=== PATIENT | female | born 1960 | race Caucasian/White ===

== ENCOUNTER 2018-01-12 18:22 | Emergency (ER) | payer BC ==
--- NOTE | 2018-01-12 18:54 | RAD ---
CHEST ONE VIEW 01/12/18 HISTORY: Emergency exam. Dizziness. Fall. COMPARISON: Chest one view 06/03/15. FINDINGS: Lungs are slightly hypoinflated. No focal air space consolidation, pneumothorax or effusion. No displ aced rib fracture. IMPRESSION: No acute intrathoracic abnormality. POS: [facility]
[2018-01-12 19:07] LABS: #Basophils 0.1 thou/uL (0.0-0.2); #Eosinphils 0.3 thou/uL (0.0-0.7); #Lymphocytes 5.5 thou/uL (1.20-3.40); #Monocytes 0.6 thou/uL (0.11-0.59); #Neutrophils 4.5 thou/uL (1.40-6.50); %Eosinophils 2.6 % (0.0-10.0); %Lymphocytes 49.7 % (21.0-51.0); %Monocytes 5.7 % (0.0-10.0); Hemoglobin 10.9 g/dL (12.0-16.0); Mean Corpuscular HGB CONC 34.7 g/dL (32.0-36.0); Mean Corpuscular Hemoglobin 29.5 pg (27.0-31.0); Mean Corpuscular Volume 85.1 fl (81.0-99.0); Mean Platelet Volume 6.7 fL (7.4-10.4); Platelet Count 469 thou/uL (130-400); RBC Distribution Width 12.5 % (11.5-14.5)
[2018-01-12 19:14] LABS: PTT 25.9 SEC (22.9-36.1)
[2018-01-12 19:15] LABS: Prothrombin Time 13.1 SEC (12.0-14.7)
[2018-01-12 19:36] LABS: ALT (SGPT) 13 U/L (8-55); AST (SGOT) 16 U/L (5-34); Albumin 3.6 g/dL (3.5-5.0); Alkaline Phosphatase 67 U/L (40-150); Anion Gap 15 mmol/L (10-20); BUN (Urea Nitrogen) 22 mg/dL (9.8-20.1); Bilirubin, Total 0.2 mg/dL (0.2-1.2); CK (CPK) 129 U/L (29-168); CKMB 3.1 ng/mL (0-6.6); Calc. Creatinine Clearance 0 mL/min (70-130); Calcium 8.9 mg/dL (7.8-10.44); Carbon Dioxide 24 mmol/L (22-29); Chloride 99 mmol/L (98-107); Estimated GFR-MDRD 36; Globulin 3.5 g/dL (2.4-3.5); Glucose 351 mg/dL (70-105); Lipase 68 U/L (8-78); Potassium 4.5 mmol/L (3.5-5.1); Protein, Total 7.1 g/dL (6.0-8.3); Sodium 133 mmol/L (136-145); Troponin I Less than 0.010 ng/mL (< 0.028)
--- NOTE | 2018-01-15 18:04 | EKG ---
Test Reason : Blood Pressure : / mmHG Vent. Rate : 113 BPM Atrial Rate : 113 BPM P-R Int : 132 ms QRS Dur : 084 ms QT Int : 354 ms P-R-T Axes : 035 019 030 degrees QTc Int : 485 ms Sinus tachycardia Otherwise normal ECG Confirmed by MERCEDES VELAZQUEZ, EDGARD ([id number]), proposal editor ELSA FARIA ([id number] on 01/15/2018 6:03:38 PM Referred By: Confirmed By:EDGARD LONG MD
== END 2018-01-12 21:18 | disposition home or self-care (01) ==
LOC: ERS 18:22
DX: F43.9 Reaction to severe stress, unspecified (principal); E11.40 Type 2 diabetes mellitus with diabetic neuropathy, unspecified; E11.9 Type 2 diabetes mellitus without complications; I10 Essential (primary) hypertension; F32.9 Major depressive disorder, single episode, unspecified; F41.9 Anxiety disorder, unspecified; Z79.4 Long term (current) use of insulin; Z79.899 Other long term (current) drug therapy
CPT/HCPCS: 36415; 36416; 71045; 80053; 82550; 82553; 83690; 84484; 85025; 85610; 85730; 93005

== ENCOUNTER 2018-01-30 21:49 | Emergency (ER) | payer BC ==
[2018-01-30] MEDS ORDERED: Acetaminophen 500 MG TAB ONE (23:30)
[2018-01-30 23:38] LABS: Bilirubin Negative (Negative); Blood, Urine Negative (Negative); Clarity CLEAR (Clear); Glucose, Urine (Dipstick) >=1000 mg/dL (Negative); Leukocyte Negative (Negative); Nitrite Negative (Negative); Protein, Urine (Dipstick) Negative (Neg-Trace); Specific Gravity, Urine 1.018 (1.002-1.036)
== END 2018-01-31 01:07 | disposition home or self-care (01) ==
LOC: ERS 21:49
DX: B34.9 Viral infection, unspecified (principal); E11.65 Type 2 diabetes mellitus with hyperglycemia; E11.40 Type 2 diabetes mellitus with diabetic neuropathy, unspecified; I10 Essential (primary) hypertension; F32.9 Major depressive disorder, single episode, unspecified; F41.9 Anxiety disorder, unspecified; Z79.899 Other long term (current) drug therapy; Z79.84 Long term (current) use of oral hypoglycemic drugs
CPT/HCPCS: 36416; 81003; 87081; 87430; 99283

== ENCOUNTER 2018-05-29 17:46 | Emergency (ER) | payer BC ==
[2018-05-29 18:35] LABS: #Basophils 0.1 thou/uL (0.0-0.2); #Eosinphils 0.3 thou/uL (0.0-0.7); #Lymphocytes 4.2 thou/uL (1.20-3.40); #Monocytes 0.5 thou/uL (0.11-0.59); #Neutrophils 3.8 thou/uL (1.40-6.50); %Basophils 1.3 % (0.0-1.0); %Eosinophils 3.1 % (0.0-10.0); %Lymphocytes 47.5 % (21.0-51.0); %Monocytes 5.4 % (0.0-10.0); %Neutrophils 42.8 % (42.0-75.0); Hemoglobin 11.3 g/dL (12.0-16.0); Mean Corpuscular HGB CONC 34.2 g/dL (32.0-36.0); Mean Corpuscular Hemoglobin 28.6 pg (27.0-31.0); Mean Corpuscular Volume 83.7 fL (78.0-98.0); Mean Platelet Volume 6.3 fL (7.4-10.4); Platelet Count 425 thou/uL (130-400); RBC Distribution Width 12.9 % (11.5-14.5); Red Blood Cell (RBC) Count 3.94 mill/uL (4.20-5.40); White Blood Cell (WBC) Count 8.9 thou/uL (4.8-10.8)
[2018-05-29 18:52] LABS: ALT (SGPT) 18 U/L (8-55); AST (SGOT) 20 U/L (5-34); Albumin 3.8 g/dL (3.5-5.0); Alkaline Phosphatase 67 U/L (40-150); Anion Gap 14 mmol/L (10-20); BUN (Urea Nitrogen) 16 mg/dL (9.8-20.1); Bilirubin, Total 0.3 mg/dL (0.2-1.2); Calc. Creatinine Clearance 0 mL/min (70-130); Calcium 9.8 mg/dL (7.8-10.44); Carbon Dioxide 21 mmol/L (22-29); Chloride 102 mmol/L (98-107); Estimated GFR-MDRD 40; Globulin 3.5 g/dL (2.4-3.5); Glucose 306 mg/dL (70-105); Lipase 52 U/L (8-78); Magnesium 1.8 mg/dL (1.6-2.6); Potassium 4.4 mmol/L (3.5-5.1); Protein, Total 7.3 g/dL (6.0-8.3); Sodium 133 mmol/L (136-145)
[2018-05-29 18:56] LABS: CKMB 2.4 ng/mL (0-6.6); Troponin I Less than 0.010 ng/mL (< 0.028)
[2018-05-29 19:20] LABS: Bilirubin Negative (Negative); Blood, Urine Negative (Negative); Clarity CLEAR (Clear); Glucose, Urine (Dipstick) 500 mg/dL (Negative); Leukocyte Negative (Negative); Nitrite Negative (Negative); Protein, Urine (Dipstick) 30 mg/dL (Neg-Trace); Specific Gravity, Urine 1.023 (1.002-1.036)
[2018-05-29 19:23] LABS: Bacteria/HPF Rare-Few HPF (None Seen); Hyaline Casts/LPF 0-3 HYALINE CAST LPF (0-3 Hyaline); Pathc Cast-AUWi Flag 0.14 (0-2.49); RBC/HPF 0-3 HPF (0-3); WBC/HPF 0-3 HPF (0-3)
[2018-05-29 19:26] LABS: Renal Epithelial None Seen HPF (0-3); Transitional Epithelial NONE SEEN HPF (0-3)
[2018-05-29 20:35] LABS: Amphetamine Not Detected (NotDetected); Barbiturates Screen Not Detected (NotDetected); Benzodiazepine Screen Detected (NotDetected); Cocaine Metabolite Screen Not Detected (NotDetected); Medtox Control Line Valid? VALID (VALID); Medtox Reader # READER 1; Methadone Not Detected (NotDetected); Methamphetamine Not Detected (NotDetected); Opiate Screen Not Detected (NotDetected); Oxycodone Screen Not Detected (NotDetected); Phencyclidine (PCP) Not Detected (NotDetected); THC/Cannabinoid Screen Not Detected (NotDetected); Tricyclic Screen Not Detected (NotDetected)
[2018-05-29 20:36] LABS: Acetaminophen Less than 6.0 mcg/mL (10.0-30.0); Alcohol Less than 10 mg/dL (Less than 10); Salicylate Less than 8.0 mg/dL (15.0-30.0)
== END 2018-05-29 23:21 | disposition home or self-care (01) ==
LOC: ERS 17:46
DX: F43.20 Adjustment disorder, unspecified (principal); E11.40 Type 2 diabetes mellitus with diabetic neuropathy, unspecified; I10 Essential (primary) hypertension; F41.9 Anxiety disorder, unspecified; F32.9 Major depressive disorder, single episode, unspecified; Z87.891 Personal history of nicotine dependence; Z79.4 Long term (current) use of insulin
CPT/HCPCS: 36415; 36416; 80053; 80306; 80307; 81003; 81015; 82553; 83690; 83735; 84443; 84484; 85025

== ENCOUNTER 2018-08-05 17:27 | Emergency (ER) | payer BC ==
--- NOTE | 2018-08-05 18:10 | RAD ---
RIGHT FOOT THREE VIEW 08/05/18 HISTORY: Wound. COMPARISON: Foot radiograph 2009. FINDINGS: No acute displaced fracture or malalignment. There is a radiopacity projecting over the plantar soft tissues in the third and fourth toes. No erosion or periostitis is appreciated. IMPRESSION: 1. Radiopacity, measuring 2 x 2 mm, within the plantar soft tissues of the third and fourth toes . 2. No definite evidence of osteomyelitis. If there is clinical concern, MRI recommended. POS: [facility]
== END 2018-08-05 18:44 | disposition home or self-care (01) ==
LOC: ERS 17:27
DX: E11.621 Type 2 diabetes mellitus with foot ulcer (principal); L97.519 Non-pressure chronic ulcer of other part of right foot with unspecified severity; L03.116 Cellulitis of left lower limb; E11.40 Type 2 diabetes mellitus with diabetic neuropathy, unspecified; F41.9 Anxiety disorder, unspecified; I10 Essential (primary) hypertension; F03.90 Unspecified dementia, unspecified severity, without behavioral disturbance, psychotic disturbance, mood disturbance, and anxiety; F32.9 Major depressive disorder, single episode, unspecified; Z87.891 Personal history of nicotine dependence; Z79.4 Long term (current) use of insulin; Z79.899 Other long term (current) drug therapy

== ENCOUNTER 2018-12-05 17:21 | Emergency (ER) | payer BC ==
--- NOTE | 2018-12-05 19:08 | RAD ---
RADIOGRAPH LEFT HAND THREE VIEWS: HISTORY: A 58-year-old female with traumatic penetrating injury to the left hand by dog bite. FINDINGS: There is no fracture, dislocation, or radiopaque foreign body. No periosteal elevation. There is so ft tissue edema. No definite subcutaneous emphysema. IMPRESSION: 1. Soft tissue edema. 2. No fracture. POS: [facility]
== END 2018-12-05 19:30 | disposition home or self-care (01) ==
LOC: ERS 17:21
DX: S61.452A Open bite of left hand, initial encounter (principal); L03.114 Cellulitis of left upper limb; E11.40 Type 2 diabetes mellitus with diabetic neuropathy, unspecified; I10 Essential (primary) hypertension; Z87.891 Personal history of nicotine dependence; Z79.4 Long term (current) use of insulin; Z79.899 Other long term (current) drug therapy; W54.0XXA Bitten by dog, initial encounter

== ENCOUNTER 2018-12-28 17:33 | Emergency (ER) | payer BC ==
[2018-12-28 18:01] LABS: #Basophils 0.2 thou/uL (0.0-0.2); #Eosinphils 0.3 thou/uL (0.0-0.7); #Lymphocytes 5.4 thou/uL (1.20-3.40); #Monocytes 0.7 thou/uL (0.11-0.59); #Neutrophils 5.2 thou/uL (1.40-6.50); %Basophils 1.3 % (0.0-1.0); %Eosinophils 2.4 % (0.0-10.0); %Lymphocytes 46.1 % (21.0-51.0); %Neutrophils 44.3 % (42.0-75.0); Hemoglobin 12.3 g/dL (12.0-16.0); Mean Corpuscular HGB CONC 33.9 g/dL (32.0-36.0); Mean Corpuscular Hemoglobin 28.1 pg (27.0-31.0); Mean Corpuscular Volume 82.9 fL (78.0-98.0); Mean Platelet Volume 6.9 fL (7.4-10.4); Platelet Count 449 thou/uL (130-400); RBC Distribution Width 13.3 % (11.5-14.5); Red Blood Cell (RBC) Count 4.36 mill/uL (4.20-5.40); White Blood Cell (WBC) Count 11.7 thou/uL (4.8-10.8)
[2018-12-28 18:30] LABS: ALT (SGPT) 20 U/L (8-55); AST (SGOT) 22 U/L (5-34); Albumin 4.1 g/dL (3.5-5.0); Alkaline Phosphatase 96 U/L (40-150); Anion Gap 16 mmol/L (10-20); BUN (Urea Nitrogen) 21 mg/dL (9.8-20.1); Bilirubin, Total 0.3 mg/dL (0.2-1.2); Calc. Creatinine Clearance 0 mL/min (70-130); Calcium 9.8 mg/dL (7.8-10.44); Carbon Dioxide 23 mmol/L (22-29); Chloride 98 mmol/L (98-107); Estimated GFR-MDRD 39; Globulin 4.2 g/dL (2.4-3.5); Glucose 381 mg/dL (70-105); Potassium 4.2 mmol/L (3.5-5.1); Protein, Total 8.3 g/dL (6.0-8.3); Sodium 133 mmol/L (136-145)
--- NOTE | 2018-12-28 18:45 | RAD ---
AP VIEW CHEST: 12/28/18 HISTORY: Cough. AP view chest is obtained on 12/28/18. Comparison made to previous exam from 01/12/18. AP view chest demonstrates the EKG leads seen over the chest. The lungs are well aerated. No evidence of active intrathoracic disease seen. No evidence of effusions, pneumonia, or pneumothorax seen. IMPRESSION: Unremarkable AP view chest. POS: [facility]
[2018-12-28 20:51] LABS: Bilirubin Negative (Negative); Blood, Urine Negative (Negative); Clarity CLEAR (Clear); Glucose, Urine (Dipstick) >=1000 mg/dL (Negative); Leukocyte Negative (Negative); Nitrite Negative (Negative); Protein, Urine (Dipstick) Negative (Neg-Trace); Specific Gravity, Urine 1.026 (1.002-1.036); Urobilinogen 0.2 mg/dL (0.2-1.0); pH, Urine 5.5 (5.0-9.0)
[2018-12-28 21:24] LABS: Base Excess-Venous -0.3 mmol/L (0 (+/- 2.5)); Bicarbonate (HCO3v) 25.6 mmol/L (22.0-29.0); CO2 Tension (PvCO2) 45.8 mmHg (41.0-51.0); Calcium, Ionized 1.14 mmol/L (1.12-1.32); Hemoglobin - Calc 12.3 g/dL (12.0-18.0); O2 Tension (PvO2) 37.6 mmHg (35.0-45.0); Potassium 3.8 mmol/L (3.4-4.7); pH (Venous) 7.356 (7.35-7.45); vO2 Saturation-calc 68.5 % (94-98)
== END 2018-12-28 21:50 | disposition home or self-care (01) ==
LOC: ERS 17:33
DX: E86.0 Dehydration (principal); E11.65 Type 2 diabetes mellitus with hyperglycemia; I10 Essential (primary) hypertension; F41.9 Anxiety disorder, unspecified; F32.9 Major depressive disorder, single episode, unspecified; E11.40 Type 2 diabetes mellitus with diabetic neuropathy, unspecified; F03.90 Unspecified dementia, unspecified severity, without behavioral disturbance, psychotic disturbance, mood disturbance, and anxiety; Z79.4 Long term (current) use of insulin; Z79.899 Other long term (current) drug therapy; Z79.891 Long term (current) use of opiate analgesic
CPT/HCPCS: 36416; 71045; 80053; 81003; 82010; 82330; 82803; 83880; 84484; 85025; 93005; 96360

== ENCOUNTER 2019-12-03 19:37 | Emergency (ER) | payer BC ==
[2019-12-03 20:57] LABS: Hemoglobin 11.9 g/dL (12.0-16.0); Mean Corpuscular Hemoglobin 27.2 pg (27.0-31.0); Mean Corpuscular Volume 82.6 fL (78.0-98.0); Mean Platelet Volume 6.8 fL (7.4-10.4); Platelet Count 467 thou/uL (130-400); RBC Distribution Width 13.9 % (11.5-14.5); Red Blood Cell (RBC) Count 4.39 mill/uL (4.20-5.40)
[2019-12-03 20:57] LABS: Bilirubin Negative (Negative); Blood, Urine Negative (Negative); Clarity Clear (Clear); Glucose, Urine (Dipstick) 300 mg/dL (Negative); Leukocyte Negative Leu/uL (Negative); Nitrite Negative (Negative); Protein, Urine (Dipstick) 10 mg/dL (Neg-Trace); Urobilinogen Normal mg/dL (Less than 2)
[2019-12-03] MEDS ORDERED: Ondansetron PF 4 MG/2 ML Vial ONE (21:04)
[2019-12-03] MEDS ORDERED: Acetaminophen 500 MG TAB ONE (21:04)
[2019-12-03 21:15] LABS: Eosinophils 2 % (0-10); Lymphocytes 38 % (21-51); MDiff Complete? YES; Monocytes 2 % (0-10); Neutrophil 58 % (42-75); Platelet Morphology Comment Appears Increased; RBC Morphology Normal
[2019-12-03 21:17] LABS: ALT (SGPT) 25 U/L (8-55); AST (SGOT) 20 U/L (5-34); Albumin 3.9 g/dL (3.5-5.0); Alkaline Phosphatase 75 U/L (40-110); Anion Gap 13 mmol/L (10-20); BUN (Urea Nitrogen) 20 mg/dL (9.8-20.1); Bilirubin, Total Less than 0.2 mg/dL (0.2-1.2); Calc. Creatinine Clearance 0 mL/min (70-130); Calcium 9.5 mg/dL (7.8-10.44); Carbon Dioxide 25 mmol/L (22-29); Chloride 103 mmol/L (98-107); Estimated GFR-MDRD 39; Globulin 3.9 g/dL (2.4-3.5); Glucose 165 mg/dL (70-105); Potassium 3.9 mmol/L (3.5-5.1); Protein, Total 7.8 g/dL (6.0-8.3); Sodium 137 mmol/L (136-145)
== END 2019-12-03 23:21 | disposition home or self-care (01) ==
LOC: ERS 19:37
DX: E11.65 Type 2 diabetes mellitus with hyperglycemia (principal); E86.0 Dehydration; E11.40 Type 2 diabetes mellitus with diabetic neuropathy, unspecified; I10 Essential (primary) hypertension; F03.90 Unspecified dementia, unspecified severity, without behavioral disturbance, psychotic disturbance, mood disturbance, and anxiety; F41.9 Anxiety disorder, unspecified; F32.9 Major depressive disorder, single episode, unspecified; Z87.891 Personal history of nicotine dependence; Z79.899 Other long term (current) drug therapy; Z79.4 Long term (current) use of insulin
CPT/HCPCS: 36416; 80053; 81003; 82010; 84484; 85025; 93005; 96361; 96374; J2405

== ENCOUNTER 2020-01-08 15:33 | Emergency (ER) | payer BC ==
[2020-01-08 16:31] LABS: Hemoglobin 12.5 g/dL (12.0-16.0); Mean Corpuscular HGB CONC 32.2 g/dL (32.0-36.0); Mean Corpuscular Hemoglobin 27.2 pg (27.0-31.0); Mean Corpuscular Volume 84.5 fL (78.0-98.0); Mean Platelet Volume 7.1 fL (7.4-10.4); Platelet Count 460 thou/uL (130-400); RBC Distribution Width 14.3 % (11.5-14.5); Red Blood Cell (RBC) Count 4.61 mill/uL (4.20-5.40); White Blood Cell (WBC) Count 11.6 thou/uL (4.8-10.8)
[2020-01-08 16:51] LABS: #Basophils 0.1 thou/uL (0.0-0.2); #Eosinphils 0.4 thou/uL (0.0-0.7); #Lymphocytes 4.9 thou/uL (1.20-3.40); #Monocytes 0.8 thou/uL (0.11-0.59); #Neutrophils 5.5 thou/uL (1.40-6.50); %Basophils 0.5 % (0.0-1.0); %Eosinophils 3.1 % (0.0-10.0); %Lymphocytes 42.3 % (21.0-51.0); %Monocytes 6.5 % (0.0-10.0); %Neutrophils 47.6 % (42.0-75.0); Band 1 % (5-11); Eosinophils 2 % (0-10); Lymphocytes 50 % (21-51); MDiff Complete? YES; Monocytes 4 % (0-10); Neutrophil 42 % (42-75); Platelet Morphology Comment Appears Increased; Polychromasia SLIGHT = 2-3 cells (100X) (0-2/hpf); Reactive Lymphocytes 1 % (0-10)
[2020-01-08 16:57] LABS: ALT (SGPT) 23 U/L (8-55); AST (SGOT) 22 U/L (5-34); Albumin 3.9 g/dL (3.5-5.0); Alkaline Phosphatase 76 U/L (40-110); Anion Gap 15 mmol/L (10-20); BUN (Urea Nitrogen) 19 mg/dL (9.8-20.1); Bilirubin, Total 0.4 mg/dL (0.2-1.2); Calc. Creatinine Clearance 0 mL/min (70-130); Calcium 9.6 mg/dL (7.8-10.44); Carbon Dioxide 24 mmol/L (22-29); Chloride 100 mmol/L (98-107); Estimated GFR-MDRD 45; Glucose 346 mg/dL (70-105); Potassium 4.1 mmol/L (3.5-5.1); Protein, Total 7.9 g/dL (6.0-8.3); Sodium 135 mmol/L (136-145)
== END 2020-01-08 17:18 | disposition left against medical advice (07) ==
LOC: ERS 15:33
DX: Z53.29 Procedure and treatment not carried out because of patient's decision for other reasons (principal)
CPT/HCPCS: 36415; 36416; 80053; 82010; 85025

== ENCOUNTER 2021-09-19 16:01 | Inpatient (IN) | payer BC, OTHER ==
[2021-09-19 16:38] LABS: #Basophils 0.1 thou/uL (0.0-0.2); #Eosinphils 0.2 thou/uL (0.0-0.7); #Lymphocytes 4.2 thou/uL (1.20-3.40); #Monocytes 0.7 thou/uL (0.11-0.59); #Neutrophils 6.8 thou/uL (1.40-6.50); %Basophils 0.6 % (0.0-1.0); %Eosinophils 1.6 % (0.0-10.0); %Lymphocytes 35.1 % (21.0-51.0); %Monocytes 5.5 % (0.0-10.0); %Neutrophils 57.2 % (42.0-75.0); Hemoglobin 14.3 g/dL (12.0-16.0); Mean Corpuscular HGB CONC 33.1 g/dL (32.0-36.0); Mean Corpuscular Hemoglobin 28.2 pg (27.0-31.0); Mean Corpuscular Volume 85.4 fL (78.0-98.0); Mean Platelet Volume 6.9 fL (7.4-10.4); Platelet Count 492 thou/uL (130-400); RBC Distribution Width 13.6 % (11.5-14.5); Red Blood Cell (RBC) Count 5.06 mill/uL (4.20-5.40); White Blood Cell (WBC) Count 11.8 thou/uL (4.8-10.8)
[2021-09-19 16:56] LABS: PTT 27.9 sec (22.9-36.1); Prothrombin Time 12.9 sec (12.0-14.7)
[2021-09-19 17:15] LABS: ALT (SGPT) 17 U/L (8-55); AST (SGOT) 14 U/L (5-34); Albumin 4.3 g/dL (3.5-5.0); Alkaline Phosphatase 107 U/L (40-110); Anion Gap 21 mmol/L (10-20); BUN (Urea Nitrogen) 19 mg/dL (9.8-20.1); Bilirubin, Total 0.5 mg/dL (0.2-1.2); Calc. Creatinine Clearance 0 mL/min (70-130); Calcium 10.6 mg/dL (7.8-10.44); Carbon Dioxide 22 mmol/L (22-29); Chloride 90 mmol/L (98-107); Globulin 4.5 g/dL (2.4-3.5); Potassium 4.7 mmol/L (3.5-5.1); Protein, Total 8.8 g/dL (6.0-8.3); Sodium 128 mmol/L (136-145)
[2021-09-19 17:19] LABS: Glucose 663 mg/dL (70-105)
[2021-09-19 17:43] LABS: Bacteria/HPF None Seen HPF (None Seen); Bilirubin Negative (Negative); Blood, Urine Negative (Negative); Clarity Clear (Clear); Glucose, Urine (Dipstick) Greater than 1000 mg/dL (Negative); Ketone, Urine 20 mg/dL (Negative); Leukocyte 25 Leu/uL (Negative); Nitrite Negative (Negative); Protein, Urine (Dipstick) 10 mg/dL (Neg-Trace); Specific Gravity, Urine 1.031 (1.002-1.036); Squamous Epithelial 0-3 HPF (0-3); Urobilinogen Normal mg/dL (Less than 2)
[2021-09-19 19:50] LABS: Actual Bicarbonate (HCO3v) 28 mEq/L (22-28); Analyzer IN Cardio ER; Base Excess 1.3 mEq/L (-2.0 to +3.0); Calcium, Ionized (venous) 1.15 mmol/L (1.16-1.32); Chloride (VBG) 94 mmol/L (98-106); Potassium (VBG) 4.31 mmol/L (3.70-5.30); Sodium 134.3 mmol/L (133-146); pH (venous) 7.34 (7.32-7.43)
[2021-09-19 20:05] LABS: Lactic Acid 1.7 mmol/L (0.5-2.2)
[2021-09-19] MEDS ORDERED: Insulin Regular 300 UNITS/3 ML VIAL ONE (21:17)
[2021-09-19] MEDS ORDERED: Ondansetron PF 4 MG/2 ML Vial IVP PRN (23:15)
[2021-09-19] MEDS ORDERED: Ondansetron ODT 4 MG TAB SL PRN (23:15)
[2021-09-19] MEDS ORDERED: Acetaminophen 325 MG TAB PO PRN (23:15)
[2021-09-19] MEDS: Sodium Chloride 0.9% 1,000 ML IV SCH (23:43)
[2021-09-19 23:44] VITALS: BMI 30.1
[2021-09-19] MEDS ORDERED: Fluconazole 100 MG TAB PO SCH (23:59)
[2021-09-20] MEDS ORDERED: Dextrose 50% Abboject 50 ML SYRINGE IVP PRN (00:15)
[2021-09-20] MEDS ORDERED: Dextrose 5% in Water 1,000 ML IV PRN (00:15)
[2021-09-20] MEDS: HumaLOG 300 UNITS/3 ML VIAL SC PRN ×2 (00:30→12:13)
[2021-09-20] MEDS: Lidocaine 4% Topical Sol 50 ML BOT TOP PRN ×4 (02:52→22:45)
[2021-09-20] MEDS: Benzonatate 100 MG CAP PO PRN ×3 (02:53→20:28)
[2021-09-20] MEDS ORDERED: Lantus 1000 UNITS/10 ML VIAL SC SCH (03:00)
[2021-09-20] MEDS: Sodium Chloride 0.9% 1,000 ML IV SCH (04:32)
[2021-09-20] MEDS: Lantus 1000 UNITS/10 ML VIAL SC SCH (08:51)
[2021-09-20 13:19] LABS: #Basophils 0.1 thou/uL (0.0-0.2); #Eosinphils 0.7 thou/uL (0.0-0.7); #Lymphocytes 5.9 thou/uL (1.20-3.40); #Monocytes 0.8 thou/uL (0.11-0.59); #Neutrophils 5.7 thou/uL (1.40-6.50); %Basophils 0.5 % (0.0-1.0); %Eosinophils 5.1 % (0.0-10.0); %Lymphocytes 44.9 % (21.0-51.0); %Monocytes 6.1 % (0.0-10.0); %Neutrophils 43.4 % (42.0-75.0); Hemoglobin 12.3 g/dL (12.0-16.0); Mean Corpuscular HGB CONC 33.8 g/dL (32.0-36.0); Mean Corpuscular Hemoglobin 28.6 pg (27.0-31.0); Mean Corpuscular Volume 84.7 fL (78.0-98.0); Mean Platelet Volume 6.6 fL (7.4-10.4); Platelet Count 369 thou/uL (130-400); RBC Distribution Width 13.2 % (11.5-14.5); White Blood Cell (WBC) Count 13.1 thou/uL (4.8-10.8)
[2021-09-20 14:06] LABS: Anion Gap 15 mmol/L (10-20); BUN (Urea Nitrogen) 18 mg/dL (9.8-20.1); Calc. Creatinine Clearance 70 mL/min (70-130); Calcium 9.4 mg/dL (7.8-10.44); Carbon Dioxide 22 mmol/L (22-29); Chloride 99 mmol/L (98-107); Glucose 432 mg/dL (70-105); Potassium 4.1 mmol/L (3.5-5.1); Sodium 132 mmol/L (136-145)
[2021-09-20] MEDS ORDERED: HumaLOG 300 UNITS/3 ML VIAL SC SCH (17:15)
[2021-09-20 18:57] LABS: SARS-CoV-2 PCR by NAA Not Detected (NotDetected)
[2021-09-20] MEDS: Gabapentin 300 MG CAP PO SCH (20:26)
[2021-09-20] MEDS: Atorvastatin Calcium 10 MG TAB PO SCH (20:26)
[2021-09-20] MEDS: HumaLOG 300 UNITS/3 ML VIAL SC SCH (20:50)
[2021-09-21] MEDS: Lidocaine 4% Topical Sol 50 ML BOT TOP PRN ×3 (06:58→21:20)
[2021-09-21 07:07] LABS: #Basophils 0.1 thou/uL (0.0-0.2); #Eosinphils 0.4 thou/uL (0.0-0.7); #Lymphocytes 5.7 thou/uL (1.20-3.40); #Monocytes 0.9 thou/uL (0.11-0.59); #Neutrophils 4.9 thou/uL (1.40-6.50); %Basophils 0.8 % (0.0-1.0); %Eosinophils 3.4 % (0.0-10.0); %Lymphocytes 47.5 % (21.0-51.0); %Monocytes 7.7 % (0.0-10.0); %Neutrophils 40.5 % (42.0-75.0); Hemoglobin 11.6 g/dL (12.0-16.0); Mean Corpuscular HGB CONC 34.1 g/dL (32.0-36.0); Mean Corpuscular Hemoglobin 29.1 pg (27.0-31.0); Mean Corpuscular Volume 85.3 fL (78.0-98.0); Mean Platelet Volume 6.7 fL (7.4-10.4); Platelet Count 356 thou/uL (130-400); RBC Distribution Width 13.2 % (11.5-14.5); Red Blood Cell (RBC) Count 3.99 mill/uL (4.20-5.40)
[2021-09-21 07:33] LABS: Anion Gap 14 mmol/L (10-20); BUN (Urea Nitrogen) 17 mg/dL (9.8-20.1); Calc. Creatinine Clearance 71 mL/min (70-130); Calcium 8.6 mg/dL (7.8-10.44); Carbon Dioxide 22 mmol/L (22-29); Chloride 104 mmol/L (98-107); Glucose 321 mg/dL (70-105); Potassium 4.2 mmol/L (3.5-5.1); Sodium 136 mmol/L (136-145)
[2021-09-21] MEDS: Gabapentin 300 MG CAP PO SCH ×2 (08:06→21:15)
[2021-09-21] MEDS: HumaLOG 300 UNITS/3 ML VIAL SC SCH ×3 (08:06→21:16)
[2021-09-21] MEDS: Benzonatate 100 MG CAP PO PRN ×2 (08:06→21:15)
[2021-09-21] MEDS: Lantus 1000 UNITS/10 ML VIAL SC SCH (08:07)
[2021-09-21] MEDS: HumaLOG 300 UNITS/3 ML VIAL SC PRN (12:35)
[2021-09-21] MEDS ORDERED: Lantus 1000 UNITS/10 ML VIAL SC SCH (15:45)
[2021-09-21] MEDS: Atorvastatin Calcium 10 MG TAB PO SCH (21:15)
[2021-09-22] MEDS: HumaLOG 300 UNITS/3 ML VIAL SC PRN ×2 (06:34→12:14)
[2021-09-22 07:09] LABS: Hemoglobin 12.2 g/dL (12.0-16.0); Mean Corpuscular HGB CONC 34.3 g/dL (32.0-36.0); Mean Corpuscular Hemoglobin 28.8 pg (27.0-31.0); Mean Corpuscular Volume 84.1 fL (78.0-98.0); Mean Platelet Volume 6.5 fL (7.4-10.4); Platelet Count 389 thou/uL (130-400); RBC Distribution Width 13.2 % (11.5-14.5); Red Blood Cell (RBC) Count 4.23 mill/uL (4.20-5.40); White Blood Cell (WBC) Count 11.7 thou/uL (4.8-10.8)
[2021-09-22 07:18] LABS: Anion Gap 12 mmol/L (10-20); BUN (Urea Nitrogen) 17 mg/dL (9.8-20.1); Calc. Creatinine Clearance 74 mL/min (70-130); Calcium 9.7 mg/dL (7.8-10.44); Carbon Dioxide 24 mmol/L (22-29); Chloride 105 mmol/L (98-107); Glucose 301 mg/dL (70-105); Potassium 4.2 mmol/L (3.5-5.1); Sodium 137 mmol/L (136-145)
[2021-09-22 07:45] LABS: Band 2 % (5-11); Eosinophils 5 % (0-10); Lymphocytes 52 % (21-51); MDiff Complete? YES; Monocytes 1 % (0-10); Neutrophil 38 % (42-75); Platelet Morphology Comment Appears Adequate; Polychromasia SLIGHT = 2-3 cells (100X) (0-2/hpf)
[2021-09-22] MEDS: Lidocaine 4% Topical Sol 50 ML BOT TOP PRN (08:03)
[2021-09-22] MEDS: Benzonatate 100 MG CAP PO PRN (08:03)
[2021-09-22] MEDS: Gabapentin 300 MG CAP PO SCH (08:03)
[2021-09-22] MEDS: HumaLOG 300 UNITS/3 ML VIAL SC SCH (08:04)
[2021-09-22 08:20] VITALS: BP 164/74; TEMP 97.6
[2021-09-22] MEDS ORDERED: Lantus 1000 UNITS/10 ML VIAL SC SCH (09:00)
[2021-09-23] MEDS ORDERED: FLU VACC QS2021-22(6MOS UP)/PF 60 MCG/0.5 ML SYRINGE IM ONE (09:00)
== END 2021-09-22 13:41 | disposition home or self-care (01) | DRG 758 ==
LOC: ERS 16:01 → T4-A 21:36
PROVIDERS: ADMIT Student in an Organized Health Care Education/Training Program; ATTEND Internal Medicine
DX: B37.3 Candidiasis of vulva and vagina (principal); N17.9 Acute kidney failure, unspecified; R45.851 Suicidal ideations; E11.65 Type 2 diabetes mellitus with hyperglycemia; N18.30 Chronic kidney disease, stage 3 unspecified; Z20.822 Contact with and (suspected) exposure to COVID-19; E83.52 Hypercalcemia; E11.22 Type 2 diabetes mellitus with diabetic chronic kidney disease; E11.40 Type 2 diabetes mellitus with diabetic neuropathy, unspecified; J06.9 Acute upper respiratory infection, unspecified; F32.A Depression, unspecified; F41.9 Anxiety disorder, unspecified; E86.0 Dehydration; F03.90 Unspecified dementia, unspecified severity, without behavioral disturbance, psychotic disturbance, mood disturbance, and anxiety; Z85.41 Personal history of malignant neoplasm of cervix uteri; Z92.21 Personal history of antineoplastic chemotherapy; Z87.891 Personal history of nicotine dependence; Z88.8 Allergy status to other drugs, medicaments and biological substances; Z91.09 Other allergy status, other than to drugs and biological substances; Z79.899 Other long term (current) drug therapy; Z79.84 Long term (current) use of oral hypoglycemic drugs; Z79.4 Long term (current) use of insulin; Z91.14 Patient's other noncompliance with medication regimen
CPT/HCPCS: 36415; 36416; 71045; 80048; 80053; 81003; 81015; 82010; 82805; 83605; 85025; 85610; 85730; 87040; 87086; 87149; 87480; 87510; 87660; 93005; 94760; J1815; J7050; U0003; U0005

== ENCOUNTER 2021-12-17 17:43 | Emergency (ER) | payer OTHER ==
[2021-12-17] MEDS ORDERED: Acetaminophen 500 MG TAB ONE (19:45)
[2021-12-18 13:23] LABS: SARS-CoV-2 PCR by NAA Not Detected (NotDetected)
== END 2021-12-17 21:31 | disposition home or self-care (01) ==
LOC: ERS 17:43
DX: J00 Acute nasopharyngitis [common cold] (principal); Z20.822 Contact with and (suspected) exposure to COVID-19; E11.40 Type 2 diabetes mellitus with diabetic neuropathy, unspecified; I10 Essential (primary) hypertension; Z87.891 Personal history of nicotine dependence
CPT/HCPCS: 99283; U0003; U0005

== ENCOUNTER 2022-07-02 16:01 | Emergency (ER) | payer SELFPAY ==
[2022-07-02 16:42] LABS: #Basophils 0.2 thou/uL (0.0-0.2); #Eosinphils 0.3 thou/uL (0.0-0.7); #Lymphocytes 4.5 thou/uL (1.20-3.40); #Monocytes 0.6 thou/uL (0.11-0.59); %Basophils 1.9 % (0.0-1.0); %Eosinophils 2.4 % (0.0-10.0); %Lymphocytes 42.8 % (21.0-51.0); %Monocytes 5.3 % (0.0-10.0); %Neutrophils 47.6 % (42.0-75.0); Hemoglobin 12.8 g/dL (12.0-16.0); Mean Corpuscular HGB CONC 34.6 g/dL (32.0-36.0); Mean Corpuscular Volume 83.9 fL (78.0-98.0); Mean Platelet Volume 6.6 fL (7.4-10.4); Platelet Count 451 thou/uL (130-400); RBC Distribution Width 13.2 % (11.5-14.5); Red Blood Cell (RBC) Count 4.42 mill/uL (4.20-5.40); White Blood Cell (WBC) Count 10.4 thou/uL (4.8-10.8)
[2022-07-02 17:03] LABS: ALT (SGPT) 14 U/L (8-55); AST (SGOT) 13 U/L (5-34); Albumin 3.8 g/dL (3.5-5.0); Alkaline Phosphatase 95 U/L (40-110); Anion Gap 18 mmol/L (10-20); BUN (Urea Nitrogen) 17 mg/dL (9.8-20.1); Bilirubin, Total 0.3 mg/dL (0.2-1.2); Calc. Creatinine Clearance 0 mL/min (70-130); Calcium 9.9 mg/dL (7.8-10.44); Carbon Dioxide 25 mmol/L (22-29); Chloride 94 mmol/L (98-107); Estimated GFR 41; Globulin 4.1 g/dL (2.4-3.5); Potassium 4.2 mmol/L (3.5-5.1); Protein, Total 7.9 g/dL (6.0-8.3); Sodium 133 mmol/L (136-145)
[2022-07-02 17:16] LABS: Glucose 558 mg/dL (70-105)
[2022-07-02] MEDS ORDERED: Insulin Regular 300 UNITS/3 ML VIAL ONE (19:10)
== END 2022-07-02 20:40 | disposition home or self-care (01) ==
LOC: ERS 16:01
DX: E11.621 Type 2 diabetes mellitus with foot ulcer (principal); L97.519 Non-pressure chronic ulcer of other part of right foot with unspecified severity; E11.40 Type 2 diabetes mellitus with diabetic neuropathy, unspecified; I10 Essential (primary) hypertension; F17.210 Nicotine dependence, cigarettes, uncomplicated; Z79.4 Long term (current) use of insulin; Z79.899 Other long term (current) drug therapy
CPT/HCPCS: 36415; 36416; 80053; 82010; 85025; 86140; 96361; 96374; J1815

== ENCOUNTER 2022-07-17 17:12 | Observation (INO) | payer SELFPAY ==
[2022-07-17 17:37] LABS: #Basophils 0.1 thou/uL (0.0-0.2); #Eosinphils 0.3 thou/uL (0.0-0.7); #Lymphocytes 5.6 thou/uL (1.20-3.40); #Monocytes 0.8 thou/uL (0.11-0.59); #Neutrophils 5.8 thou/uL (1.40-6.50); %Eosinophils 2.2 % (0.0-10.0); %Lymphocytes 44.5 % (21.0-51.0); %Neutrophils 46.3 % (42.0-75.0); Hemoglobin 12.3 g/dL (12.0-16.0); Mean Corpuscular HGB CONC 34.4 g/dL (32.0-36.0); Mean Corpuscular Hemoglobin 28.7 pg (27.0-31.0); Mean Corpuscular Volume 83.4 fL (78.0-98.0); Mean Platelet Volume 6.5 fL (7.4-10.4); Platelet Count 425 thou/uL (130-400); RBC Distribution Width 13.7 % (11.5-14.5); Red Blood Cell (RBC) Count 4.27 mill/uL (4.20-5.40); White Blood Cell (WBC) Count 12.6 thou/uL (4.8-10.8)
[2022-07-17 18:00] LABS: ALT (SGPT) 23 U/L (8-55); AST (SGOT) 25 U/L (5-34); Albumin 3.6 g/dL (3.5-5.0); Alkaline Phosphatase 85 U/L (40-110); Anion Gap 20 mmol/L (10-20); BUN (Urea Nitrogen) 14 mg/dL (9.8-20.1); Bilirubin, Total 0.2 mg/dL (0.2-1.2); Calc. Creatinine Clearance 0 mL/min (70-130); Calcium 9.1 mg/dL (7.8-10.44); Carbon Dioxide 20 mmol/L (22-29); Chloride 97 mmol/L (98-107); Estimated GFR 45; Globulin 4.1 g/dL (2.4-3.5); Glucose 508 mg/dL (70-105); Lipase 46 U/L (8-78); Potassium 4.7 mmol/L (3.5-5.1); Protein, Total 7.7 g/dL (6.0-8.3); Sodium 132 mmol/L (136-145)
[2022-07-17 19:50] LABS: Bilirubin Negative (Negative); Blood, Urine Negative (Negative); Clarity Clear (Clear); Glucose, Urine (Dipstick) Greater than 1000 mg/dL (Negative); Ketone, Urine Negative (Negative); Leukocyte Negative Leu/uL (Negative); Nitrite Negative (Negative); Protein, Urine (Dipstick) 20 mg/dL (Neg-Trace); Specific Gravity, Urine 1.029 (1.002-1.036); Urobilinogen Normal mg/dL (Less than 2); pH, Urine 5.5 (5.0-9.0)
[2022-07-17 20:01] LABS: Actual Bicarbonate (HCO3v) 26 mEq/L (22-28); Analyzer IN Cardio ER; Base Excess 0.9 mEq/L (-2.0 to +3.0); Chloride (VBG) 99 mmol/L (98-106); Hemoglobin (Hb) 13.9 g/dL (11.7-16.0); pH (venous) 7.41 (7.32-7.43)
[2022-07-17] MEDS ORDERED: INSULIN REGULAR IN 0.9 % NACL 100 UNIT/100 ML BAG ONE (20:20)
[2022-07-17] MEDS ORDERED: Insulin Regular 300 UNITS/3 ML VIAL ONE (20:32)
[2022-07-17] MEDS: Sodium Chloride 0.9% 1,000 ML IV SCH (21:00)
[2022-07-17] MEDS ORDERED: Acetaminophen 325 MG TAB PO PRN (22:34)
[2022-07-17] MEDS ORDERED: Ondansetron PF 4 MG/2 ML Vial IVP PRN (22:34)
[2022-07-17] MEDS ORDERED: Dextrose 5% in Water 1,000 ML IV PRN (22:37)
[2022-07-17] MEDS ORDERED: HumaLOG 300 UNITS/3 ML VIAL SC PRN ×2 (22:37)
[2022-07-17] MEDS ORDERED: Dextrose 50% Abboject 50 ML SYRINGE SLOW IVP PRN (22:37)
[2022-07-17 23:34] LABS: Lactic Acid 1.7 mmol/L (0.5-2.2)
[2022-07-17 23:53] LABS: SARS-CoV-2 NAA Rapid Test Not Detected (NotDetected)
[2022-07-18] MEDS: Sodium Chloride 0.9% 1,000 ML IV SCH (05:44)
[2022-07-18 06:27] LABS: Hemoglobin A1c 11.7 % (4.0-6.0)
[2022-07-18 06:43] LABS: Anion Gap 14 mmol/L (10-20); BUN (Urea Nitrogen) 11 mg/dL (9.8-20.1); Calc. Creatinine Clearance 0 mL/min (70-130); Calcium 8.7 mg/dL (7.8-10.44); Carbon Dioxide 24 mmol/L (22-29); Chloride 104 mmol/L (98-107); Estimated GFR 56; Glucose 355 mg/dL (70-105); Hemoglobin 11.4 g/dL (12.0-16.0); Mean Corpuscular HGB CONC 34.4 g/dL (32.0-36.0); Mean Corpuscular Hemoglobin 29.1 pg (27.0-31.0); Mean Corpuscular Volume 84.4 fL (78.0-98.0); Mean Platelet Volume 6.6 fL (7.4-10.4); Platelet Count 390 thou/uL (130-400); Potassium 3.9 mmol/L (3.5-5.1); RBC Distribution Width 13.7 % (11.5-14.5); Red Blood Cell (RBC) Count 3.91 mill/uL (4.20-5.40); Sodium 138 mmol/L (136-145)
[2022-07-18 06:59] LABS: Band 2 % (5-11); Eosinophils 6 % (0-10); Lymphocytes 51 % (21-51); MDiff Complete? YES; Monocytes 8 % (0-10); Neutrophil 33 % (42-75)
[2022-07-18] MEDS ORDERED: Heparin 5,000 UNITS/ML VIAL SC SCH (09:00)
[2022-07-18] MEDS ORDERED: Insulin Glargine 30 UNITS/0.3 ML VIAL SC SCH ×2 (09:00→21:00)
[2022-07-18 12:16] VITALS: BP 167/84; TEMP 98.3
== END 2022-07-18 16:05 | disposition home or self-care (01) ==
LOC: ERS 17:12 → ERHOLD 22:05 → T4-B 07-18 07:48
PROVIDERS: ADMIT Internal Medicine; ATTEND Internal Medicine
DX: E11.65 Type 2 diabetes mellitus with hyperglycemia (principal); E11.10 Type 2 diabetes mellitus with ketoacidosis without coma; I12.9 Hypertensive chronic kidney disease with stage 1 through stage 4 chronic kidney disease, or unspecified chronic kidney disease; E11.22 Type 2 diabetes mellitus with diabetic chronic kidney disease; N18.30 Chronic kidney disease, stage 3 unspecified; F03.90 Unspecified dementia, unspecified severity, without behavioral disturbance, psychotic disturbance, mood disturbance, and anxiety; F17.210 Nicotine dependence, cigarettes, uncomplicated; E11.621 Type 2 diabetes mellitus with foot ulcer; L97.419 Non-pressure chronic ulcer of right heel and midfoot with unspecified severity; L97.429 Non-pressure chronic ulcer of left heel and midfoot with unspecified severity; E11.42 Type 2 diabetes mellitus with diabetic polyneuropathy; Z66 Do not resuscitate; Z91.14 Patient's other noncompliance with medication regimen; Z85.41 Personal history of malignant neoplasm of cervix uteri; Z79.4 Long term (current) use of insulin; Z79.84 Long term (current) use of oral hypoglycemic drugs; Z79.899 Other long term (current) drug therapy; Z88.8 Allergy status to other drugs, medicaments and biological substances; Z20.822 Contact with and (suspected) exposure to COVID-19
CPT/HCPCS: 36415; 36416; 80048; 80053; 81003; 82010; 82805; 83036; 83605; 83690; 83880; 84484; 85025; 87040; 93005; 96360; 96361; 96372; 96374; G0378; J1644; J1815; J7050; U0002

== ENCOUNTER 2022-08-28 11:54 | Emergency (ER) | payer SELFPAY ==
[2022-08-28] MEDS ORDERED: Gabapentin 300 MG CAP PO SCH (13:00)
[2022-08-28 14:21] LABS: #Basophils 0.1 thou/uL (0.0-0.2); #Eosinphils 0.2 thou/uL (0.0-0.7); #Lymphocytes 5.1 thou/uL (1.20-3.40); #Monocytes 1.2 thou/uL (0.11-0.59); #Neutrophils 8.6 thou/uL (1.40-6.50); %Basophils 0.5 % (0.0-1.0); %Eosinophils 1.4 % (0.0-10.0); %Lymphocytes 33.7 % (21.0-51.0); %Monocytes 7.6 % (0.0-10.0); %Neutrophils 56.8 % (42.0-75.0); Hemoglobin 11.4 g/dL (12.0-16.0); Mean Corpuscular HGB CONC 33.8 g/dL (32.0-36.0); Mean Corpuscular Hemoglobin 28.4 pg (27.0-31.0); Mean Corpuscular Volume 84.1 fL (78.0-98.0); Mean Platelet Volume 6.2 fL (7.4-10.4); Platelet Count 491 thou/uL (130-400); RBC Distribution Width 13.1 % (11.5-14.5); Red Blood Cell (RBC) Count 4.01 mill/uL (4.20-5.40); White Blood Cell (WBC) Count 15.2 thou/uL (4.8-10.8)
[2022-08-28 14:33] LABS: ALT (SGPT) 9 U/L (8-55); AST (SGOT) 12 U/L (5-34); Albumin 3.6 g/dL (3.5-5.0); Alkaline Phosphatase 91 U/L (40-110); Anion Gap 14 mmol/L (10-20); BUN (Urea Nitrogen) 15 mg/dL (9.8-20.1); Bilirubin, Total 0.2 mg/dL (0.2-1.2); Calc. Creatinine Clearance 0 mL/min (70-130); Calcium 9.9 mg/dL (7.8-10.44); Carbon Dioxide 26 mmol/L (22-29); Chloride 101 mmol/L (98-107); Estimated GFR 52; Globulin 4.3 g/dL (2.4-3.5); Glucose 120 mg/dL (70-105); Potassium 4.2 mmol/L (3.5-5.1); Protein, Total 7.9 g/dL (6.0-8.3); Sodium 137 mmol/L (136-145)
== END 2022-08-28 15:00 | disposition home or self-care (01) ==
LOC: ERS 11:54
DX: E11.40 Type 2 diabetes mellitus with diabetic neuropathy, unspecified (principal); Z87.891 Personal history of nicotine dependence; Z79.4 Long term (current) use of insulin
CPT/HCPCS: 80053; 85025; 99283

== ENCOUNTER 2022-09-02 22:44 | Inpatient (IN) | payer SELFPAY ==
[2022-09-02 23:40] LABS: #Basophils 0.1 thou/uL (0.0-0.2); #Eosinphils 0.3 thou/uL (0.0-0.7); #Lymphocytes 5.3 thou/uL (1.20-3.40); #Monocytes 0.7 thou/uL (0.11-0.59); %Basophils 0.6 % (0.0-1.0); %Eosinophils 2.9 % (0.0-10.0); %Lymphocytes 46.6 % (21.0-51.0); Hemoglobin 10.9 g/dL (12.0-16.0); Mean Corpuscular HGB CONC 33.1 g/dL (32.0-36.0); Mean Corpuscular Hemoglobin 27.9 pg (27.0-31.0); Mean Corpuscular Volume 84.5 fL (78.0-98.0); Mean Platelet Volume 6.5 fL (7.4-10.4); Platelet Count 537 thou/uL (130-400); RBC Distribution Width 13.1 % (11.5-14.5); White Blood Cell (WBC) Count 11.3 thou/uL (4.8-10.8)
[2022-09-02 23:53] LABS: ALT (SGPT) 9 U/L (8-55); AST (SGOT) 11 U/L (5-34); Albumin 3.5 g/dL (3.5-5.0); Alkaline Phosphatase 89 U/L (40-110); Anion Gap 17 mmol/L (10-20); BUN (Urea Nitrogen) 17 mg/dL (9.8-20.1); Bilirubin, Total 0.2 mg/dL (0.2-1.2); Calc. Creatinine Clearance 0 mL/min (70-130); Calcium 9.1 mg/dL (7.8-10.44); Carbon Dioxide 24 mmol/L (22-29); Chloride 98 mmol/L (98-107); Estimated GFR 42; Glucose 483 mg/dL (70-105); Potassium 4.6 mmol/L (3.5-5.1); Protein, Total 7.5 g/dL (6.0-8.3); Sodium 134 mmol/L (136-145)
[2022-09-03] MEDS ORDERED: VANCOMYCIN 1.75 GM/500 ML BAG 1.75 GM in Premix Bag 1 BAG IVPB SCH (01:00)
[2022-09-03] MEDS ORDERED: Dextrose 5% in Water 1,000 ML IV PRN (02:49)
[2022-09-03] MEDS ORDERED: Dextrose 50% Abboject 50 ML SYRINGE SLOW IVP PRN (02:49)
[2022-09-03] MEDS ORDERED: Acetaminophen 325 MG TAB PO PRN (02:49)
[2022-09-03] MEDS ORDERED: Ondansetron PF 4 MG/2 ML Vial IVP PRN (02:49)
[2022-09-03] MEDS ORDERED: Ondansetron ODT 4 MG TAB PO PRN (02:49)
[2022-09-03] MEDS ORDERED: HumaLOG 300 UNITS/3 ML VIAL SC PRN (02:49)
[2022-09-03] MEDS ORDERED: Acetaminophen 650 MG Suppository PR PRN (02:49)
[2022-09-03] MEDS ORDERED: Piperacillin/Tazobactam 3.375 GM in Sodium Chloride 0.9% 100 ML IVPB SCH (05:00)
[2022-09-03 05:13] VITALS: BMI 30.1
[2022-09-03] MEDS: HumaLOG 300 UNITS/3 ML VIAL SC PRN ×2 (06:05→18:26)
[2022-09-03 06:56] LABS: Anion Gap 14 mmol/L (10-20); BUN (Urea Nitrogen) 16 mg/dL (9.8-20.1); Calc. Creatinine Clearance 65 mL/min (70-130); Carbon Dioxide 25 mmol/L (22-29); Chloride 102 mmol/L (98-107); Estimated GFR 47; Glucose 399 mg/dL (70-105); Potassium 3.7 mmol/L (3.5-5.1); Sodium 137 mmol/L (136-145)
[2022-09-03 06:57] LABS: Band 1 % (5-11); Eosinophils 3 % (0-10); Hemoglobin 10.1 g/dL (12.0-16.0); Lymphocytes 55 % (21-51); MDiff Complete? YES; Mean Corpuscular HGB CONC 32.9 g/dL (32.0-36.0); Mean Corpuscular Hemoglobin 27.7 pg (27.0-31.0); Mean Platelet Volume 6.4 fL (7.4-10.4); Monocytes 6 % (0-10); Neutrophil 35 % (42-75); Platelet Count 494 thou/uL (130-400); Platelet Morphology Comment Appears Increased; RBC Distribution Width 13.1 % (11.5-14.5); Red Blood Cell (RBC) Count 3.65 mill/uL (4.20-5.40); White Blood Cell (WBC) Count 10.8 thou/uL (4.8-10.8)
[2022-09-03 08:17] LABS: Hemoglobin A1c 10.8 % (4.0-6.0)
[2022-09-03] MEDS ORDERED: Non-Formulary Item 1 EACH (Insulin Aspart [Novolog] 100 UNIT/ML Vial) SC SCH (09:00)
[2022-09-03] MEDS ORDERED: Non-Formulary Item 1 EACH (Fluoxetine Hcl [Fluoxetine Hcl] 60 MG Tablet) PO SCH (09:00)
[2022-09-03] MEDS: Insulin Glargine 30 UNITS/0.3 ML VIAL SC SCH ×2 (09:49→20:18)
[2022-09-03] MEDS: HumaLOG 300 UNITS/3 ML VIAL SC SCH ×3 (09:50→20:19)
[2022-09-03] MEDS: FLUoxetine HCl 20 MG CAP PO SCH (09:50)
[2022-09-03] MEDS: Gabapentin 300 MG CAP PO SCH ×2 (09:51→20:15)
[2022-09-03] MEDS: Piperacillin/Tazobactam 3.375 GM in Sodium Chloride 0.9% 100 ML IVPB SCH ×2 (09:53→16:54)
[2022-09-03] MEDS: traMADol HCl 50 MG TAB PO PRN ×2 (10:44→20:16)
[2022-09-03] MEDS: Atorvastatin Calcium 10 MG TAB PO SCH (20:15)
[2022-09-04] MEDS: Piperacillin/Tazobactam 3.375 GM in Sodium Chloride 0.9% 100 ML IVPB SCH ×3 (02:05→17:40)
[2022-09-04] MEDS: HumaLOG 300 UNITS/3 ML VIAL SC PRN (06:27)
[2022-09-04] MEDS: FLUoxetine HCl 20 MG CAP PO SCH (08:26)
[2022-09-04] MEDS: Insulin Glargine 30 UNITS/0.3 ML VIAL SC SCH ×2 (08:26→21:18)
[2022-09-04] MEDS: Gabapentin 300 MG CAP PO SCH ×2 (08:26→21:18)
[2022-09-04] MEDS: HumaLOG 300 UNITS/3 ML VIAL SC SCH ×4 (08:27→21:18)
[2022-09-04] MEDS: traMADol HCl 50 MG TAB PO PRN ×2 (11:51→21:20)
[2022-09-04] MEDS: Atorvastatin Calcium 10 MG TAB PO SCH (21:18)
[2022-09-05] MEDS: Piperacillin/Tazobactam 3.375 GM in Sodium Chloride 0.9% 100 ML IVPB SCH ×3 (02:15→17:29)
[2022-09-05] MEDS: HumaLOG 300 UNITS/3 ML VIAL SC PRN ×2 (06:26→17:30)
[2022-09-05 06:27] LABS: Anion Gap 14 mmol/L (10-20); BUN (Urea Nitrogen) 20 mg/dL (9.8-20.1); Calc. Creatinine Clearance 70 mL/min (70-130); Calcium 9.8 mg/dL (7.8-10.44); Carbon Dioxide 25 mmol/L (22-29); Chloride 101 mmol/L (98-107); Estimated GFR 52; Glucose 258 mg/dL (70-105); Potassium 4.2 mmol/L (3.5-5.1); Sodium 136 mmol/L (136-145)
[2022-09-05 06:55] LABS: Eosinophils 2 % (0-10); Hemoglobin 10.2 g/dL (12.0-16.0); Lymphocytes 48 % (21-51); MDiff Complete? YES; Mean Corpuscular Hemoglobin 27.5 pg (27.0-31.0); Mean Platelet Volume 6.2 fL (7.4-10.4); Monocytes 3 % (0-10); Neutrophil 47 % (42-75); Platelet Count 502 thou/uL (130-400); Platelet Morphology Comment Appears Increased; RBC Distribution Width 13.2 % (11.5-14.5); RBC Morphology Normal; Red Blood Cell (RBC) Count 3.72 mill/uL (4.20-5.40); White Blood Cell (WBC) Count 13.5 thou/uL (4.8-10.8)
[2022-09-05] MEDS: Gabapentin 300 MG CAP PO SCH ×2 (08:52→21:00)
[2022-09-05] MEDS: HumaLOG 300 UNITS/3 ML VIAL SC SCH ×3 (08:53→21:01)
[2022-09-05] MEDS: FLUoxetine HCl 20 MG CAP PO SCH (08:53)
[2022-09-05] MEDS: Insulin Glargine 30 UNITS/0.3 ML VIAL SC SCH ×2 (08:54→21:14)
[2022-09-05] MEDS: traMADol HCl 50 MG TAB PO PRN (08:57)
[2022-09-05] MEDS ORDERED: Bisacodyl 5 MG TAB PO PRN (18:34)
[2022-09-05] MEDS ORDERED: Bisacodyl 5 MG TAB PO SCH (18:45)
[2022-09-05] MEDS: Atorvastatin Calcium 10 MG TAB PO SCH (21:01)
[2022-09-06] MEDS: Piperacillin/Tazobactam 3.375 GM in Sodium Chloride 0.9% 100 ML IVPB SCH ×3 (02:17→17:08)
[2022-09-06 07:26] LABS: Anion Gap 16 mmol/L (10-20); BUN (Urea Nitrogen) 19 mg/dL (9.8-20.1); Calc. Creatinine Clearance 66 mL/min (70-130); Calcium 9.6 mg/dL (7.8-10.44); Carbon Dioxide 24 mmol/L (22-29); Chloride 102 mmol/L (98-107); Estimated GFR 49; Glucose 100 mg/dL (70-105); Potassium 4.1 mmol/L (3.5-5.1); Sodium 138 mmol/L (136-145)
[2022-09-06] MEDS ORDERED: Prevnar 13-Val Conj/PF 0.5 ML SYRINGE IM ONE (09:00)
[2022-09-06] MEDS ORDERED: FLU VACC QS2022-23(6MOS UP)/PF 60 MCG/0.5 ML SYRINGE IM ONE (09:00)
[2022-09-06] MEDS: Insulin Glargine 30 UNITS/0.3 ML VIAL SC SCH ×2 (09:09→21:53)
[2022-09-06] MEDS: FLUoxetine HCl 20 MG CAP PO SCH (09:09)
[2022-09-06] MEDS: HumaLOG 300 UNITS/3 ML VIAL SC SCH ×3 (09:09→21:55)
[2022-09-06] MEDS: Gabapentin 300 MG CAP PO SCH ×2 (09:10→20:43)
[2022-09-06 11:18] LABS: Eosinophils 5 % (0-10); Hemoglobin 11.1 g/dL (12.0-16.0); Lymphocytes 50 % (21-51); MDiff Complete? YES; Mean Corpuscular HGB CONC 32.8 g/dL (32.0-36.0); Mean Corpuscular Volume 85.2 fL (78.0-98.0); Mean Platelet Volume 6.3 fL (7.4-10.4); Monocytes 9 % (0-10); Neutrophil 35 % (42-75); Platelet Count 556 thou/uL (130-400); Platelet Morphology Comment Appears Increased; RBC Distribution Width 13.2 % (11.5-14.5); RBC Morphology Normal; Red Blood Cell (RBC) Count 3.98 mill/uL (4.20-5.40); White Blood Cell (WBC) Count 14.4 thou/uL (4.8-10.8)
[2022-09-06] MEDS: HumaLOG 300 UNITS/3 ML VIAL SC PRN (17:08)
[2022-09-06] MEDS: traMADol HCl 50 MG TAB PO PRN (20:49)
[2022-09-06] MEDS: Atorvastatin Calcium 10 MG TAB PO SCH (20:50)
[2022-09-07] MEDS: Piperacillin/Tazobactam 3.375 GM in Sodium Chloride 0.9% 100 ML IVPB SCH ×2 (02:24→09:51)
[2022-09-07 06:53] LABS: #Basophils 0.1 thou/uL (0.0-0.2); #Eosinphils 0.4 thou/uL (0.0-0.7); #Lymphocytes 5.3 thou/uL (1.20-3.40); #Monocytes 0.8 thou/uL (0.11-0.59); #Neutrophils 5.4 thou/uL (1.40-6.50); %Basophils 0.6 % (0.0-1.0); %Eosinophils 3.4 % (0.0-10.0); %Monocytes 7.1 % (0.0-10.0); %Neutrophils 44.8 % (42.0-75.0); Mean Corpuscular HGB CONC 33.3 g/dL (32.0-36.0); Mean Corpuscular Hemoglobin 28.6 pg (27.0-31.0); Mean Corpuscular Volume 85.9 fL (78.0-98.0); Mean Platelet Volume 6.2 fL (7.4-10.4); Platelet Count 550 thou/uL (130-400); RBC Distribution Width 13.6 % (11.5-14.5); Red Blood Cell (RBC) Count 3.85 mill/uL (4.20-5.40); White Blood Cell (WBC) Count 11.9 thou/uL (4.8-10.8)
[2022-09-07 06:59] LABS: Anion Gap 13 mmol/L (10-20); BUN (Urea Nitrogen) 20 mg/dL (9.8-20.1); Calc. Creatinine Clearance 59 mL/min (70-130); Calcium 9.5 mg/dL (7.8-10.44); Carbon Dioxide 26 mmol/L (22-29); Chloride 104 mmol/L (98-107); Estimated GFR 42; Glucose 94 mg/dL (70-105); Potassium 4.1 mmol/L (3.5-5.1); Sodium 139 mmol/L (136-145)
[2022-09-07] MEDS: FLUoxetine HCl 20 MG CAP PO SCH (08:14)
[2022-09-07] MEDS: Gabapentin 300 MG CAP PO SCH (08:14)
[2022-09-07] MEDS: Insulin Glargine 30 UNITS/0.3 ML VIAL SC SCH (09:38)
[2022-09-07] MEDS: HumaLOG 300 UNITS/3 ML VIAL SC SCH ×3 (09:38→17:16)
[2022-09-07 09:40] VITALS: BP 118/63; TEMP 98.1
[2022-09-07] MEDS: HumaLOG 300 UNITS/3 ML VIAL SC PRN ×2 (12:19→17:16)
== END 2022-09-07 18:08 | disposition home or self-care (01) | DRG 638 ==
LOC: ERS 22:44 → T4-A 09-03 02:54 → OBSVTOIN 09-03 11:43
PROVIDERS: ADMIT Student in an Organized Health Care Education/Training Program; ATTEND Internal Medicine
DX: E11.621 Type 2 diabetes mellitus with foot ulcer (principal); E87.1 Hypo-osmolality and hyponatremia; Z79.4 Long term (current) use of insulin; L97.521 Non-pressure chronic ulcer of other part of left foot limited to breakdown of skin; E11.40 Type 2 diabetes mellitus with diabetic neuropathy, unspecified; N18.30 Chronic kidney disease, stage 3 unspecified; E11.22 Type 2 diabetes mellitus with diabetic chronic kidney disease; I12.9 Hypertensive chronic kidney disease with stage 1 through stage 4 chronic kidney disease, or unspecified chronic kidney disease; Z79.84 Long term (current) use of oral hypoglycemic drugs; Z20.822 Contact with and (suspected) exposure to COVID-19; E11.65 Type 2 diabetes mellitus with hyperglycemia; E78.5 Hyperlipidemia, unspecified
CPT/HCPCS: 36415; 36416; 80048; 80053; 83036; 85025; 90471; 90686; 96365; 96366; 96374; 96375; 97139; G0008; G0378; J1815; J2543; J3370; J3490; U0003; U0005

== ENCOUNTER 2023-03-22 09:57 | Emergency (ER) | payer SELFPAY ==
[2023-03-22 11:03] LABS: ALT (SGPT) 18 U/L (8-55); AST (SGOT) 14 U/L (5-34); Albumin 4.1 g/dL (3.5-5.0); Alkaline Phosphatase 81 U/L (40-110); Anion Gap 19 mmol/L (10-20); BUN (Urea Nitrogen) 25 mg/dL (9.8-20.1); Bilirubin, Total 0.4 mg/dL (0.2-1.2); Calc. Creatinine Clearance 0 mL/min (70-130); Calcium 10.1 mg/dL (7.8-10.44); Carbon Dioxide 22 mmol/L (22-29); Chloride 96 mmol/L (98-107); Estimated GFR 45; Globulin 3.5 g/dL (2.4-3.5); Potassium 4.9 mmol/L (3.5-5.1); Protein, Total 7.6 g/dL (6.0-8.3); Sodium 132 mmol/L (136-145)
[2023-03-22 11:08] LABS: Glucose 564 mg/dL (70-105)
[2023-03-22 11:10] LABS: #Basophils 0.1 thou/uL (0.0-0.2); #Eosinphils 0.3 thou/uL (0.0-0.7); #Lymphocytes 4.9 thou/uL (1.20-3.40); #Monocytes 0.7 thou/uL (0.11-0.59); #Neutrophils 4.1 thou/uL (1.40-6.50); %Basophils 0.9 % (0.0-1.0); %Lymphocytes 48.5 % (21.0-51.0); %Neutrophils 40.5 % (42.0-75.0); Hemoglobin 12.6 g/dL (12.0-16.0); Mean Corpuscular HGB CONC 32.1 g/dL (32.0-36.0); Mean Corpuscular Hemoglobin 26.8 pg (27.0-31.0); Mean Corpuscular Volume 83.6 fl (78.0-98.0); Mean Platelet Volume 6.8 fL (7.4-10.4); Platelet Count 455 10x3/uL (130-400); RBC Distribution Width 13.3 % (11.5-14.5); Red Blood Cell (RBC) Count 4.71 mill/uL (4.20-5.40); White Blood Cell (WBC) Count 10.1 10x3/uL (4.8-10.8)
[2023-03-22 11:16] LABS: Acetaminophen Less than 10.0 mcg/mL (10.0-30.0); Alcohol Less than 10 mg/dL (Less than 10)
[2023-03-22 11:41] LABS: Salicylate Less than 8.0 mg/dL (15.0-30.0)
[2023-03-22 12:33] LABS: Amphetamine Not Detected (NotDetected); Barbiturates Screen Not Detected (NotDetected); Benzodiazepine Screen Not Detected (NotDetected); Cocaine Metabolite Screen Not Detected (NotDetected); Methadone Not Detected (NotDetected); Methamphetamine Not Detected (NotDetected); Opiate Screen Not Detected (NotDetected); Oxycodone Screen Not Detected (NotDetected); Phencyclidine (PCP) Not Detected (NotDetected); THC/Cannabinoid Screen Not Detected (NotDetected); Tricyclic Screen Not Detected (NotDetected)
[2023-03-22 12:36] LABS: Bilirubin Negative (Negative); Blood, Urine Negative (Negative); Clarity Clear (Clear); Glucose, Urine (Dipstick) Greater than 1000 mg/dL (Negative); Ketone, Urine Negative (Negative); Leukocyte 25 Leu/uL (Negative); Nitrite Negative (Negative); Protein, Urine (Dipstick) 10 mg/dL (Neg-Trace); RBC/HPF 0-3 HPF (0-3); Specific Gravity, Urine 1.021 (1.002-1.036); Squamous Epithelial 0-3 HPF (0-3); Urobilinogen Normal mg/dL (Less than 2); pH, Urine 5.5 (5.0-9.0)
[2023-03-22 12:39] LABS: Bacteria/HPF 1+ HPF (None Seen)
[2023-03-22] MEDS ORDERED: Insulin Regular 300 UNITS/3 ML VIAL ONE (12:54)
[2023-03-22] MEDS ORDERED: cefTRIAXone (ROCEPHIN) 1 GM VIAL ONE (12:54)
[2023-03-22] MEDS ORDERED: Gabapentin 300 MG CAP PO SCH (22:00)
[2023-03-23] MEDS ORDERED: Insulin Glargine 30 UNITS/0.3 ML VIAL SC SCH (09:00)
[2023-03-23] MEDS ORDERED: Gabapentin 300 MG CAP PO SCH ×2 (11:45→21:00)
[2023-03-24] MEDS ORDERED: cefTRIAXone (ROCEPHIN) 1 GM VIAL ONE ×2 (05:40→05:56)
[2023-03-24] MEDS ORDERED: Lidocaine 1% PF 5 ML VIAL ONE (05:40)
[2023-03-24] MEDS ORDERED: Lidocaine 1% MPF 2 ML VIAL ONE (05:56)
[2023-03-24] MEDS ORDERED: Insulin Regular 300 UNITS/3 ML VIAL ONE (08:49)
[2023-03-25] MEDS ORDERED: cefTRIAXone (ROCEPHIN) 1 GM VIAL ONE (05:39)
[2023-03-25] MEDS ORDERED: Lidocaine 1% MPF 2 ML VIAL ONE (05:39)
[2023-03-25] MEDS ORDERED: Ciprofloxacin 500 MG TAB PO SCH (06:00)
[2023-03-25] MEDS ORDERED: Ibuprofen 600 MG TAB PO PRN (07:36)
[2023-03-25] MEDS ORDERED: hydrOXYzine Pamoate 25 mg Capsule PO PRN (07:41)
[2023-03-25] MEDS ORDERED: cefTRIAXone\\ROCEPHIN 1 GM in Sodium Chloride 0.9% 100 ML IVPB SCH (07:45)
[2023-03-25] MEDS ORDERED: Insulin Regular 300 UNITS/3 ML VIAL SC SCH (07:45)
[2023-03-25] MEDS ORDERED: cefTRIAXone (ROCEPHIN) 1 GM VIAL IM SCH (07:45)
[2023-03-25] MEDS ORDERED: metFORMIN 500 MG TAB PO SCH (09:00)
[2023-03-25] MEDS ORDERED: Acetaminophen 325 MG TAB PO PRN (09:35)
== END 2023-03-22 17:06 ==
LOC: ERS 09:57
DX: E11.65 Type 2 diabetes mellitus with hyperglycemia (principal); R45.851 Suicidal ideations; N39.0 Urinary tract infection, site not specified; E11.40 Type 2 diabetes mellitus with diabetic neuropathy, unspecified; Z87.891 Personal history of nicotine dependence; Z79.84 Long term (current) use of oral hypoglycemic drugs; Z79.4 Long term (current) use of insulin
CPT/HCPCS: 36415; 36416; 70450; 80053; 80306; 80307; 81003; 81015; 82010; 83605; 84484; 85025; 87077; 87086; 87186; 93005; 96360; 96361; 96365; 96366; 96372; 96375; J0696; J1815

== ENCOUNTER 2023-09-24 10:02 | Outpatient (CLI) | payer BC | END 2023-09-24 10:03 | disposition home or self-care (01) | LOC: BICMAMMO 10:02 | PROVIDERS: ATTEND Family Medicine | DX: Z12.31 Encounter for screening mammogram for malignant neoplasm of breast (principal); Z80.3 Family history of malignant neoplasm of breast; Z85.41 Personal history of malignant neoplasm of cervix uteri | CPT/HCPCS: 77063; 77067 ==

== ENCOUNTER 2023-10-03 17:38 | Inpatient (IN) | payer BC ==
[~2023-10-03 17:38] MED LIST: Iopamidol-370 76% 500 ML MDV (1 ML CHARGE) ONE
[2023-10-03 18:04] LABS: #Eosinphils 0.3 thou/uL (0.0-0.7); #Monocytes 0.7 thou/uL (0.11-0.59); #Neutrophils 4.2 thou/uL (1.40-6.50); %Basophils 0.3 % (0.0-1.0); %Eosinophils 2.8 % (0.0-10.0); %Lymphocytes 42.6 % (21.0-51.0); %Monocytes 7.7 % (0.0-10.0); %Neutrophils 46.2 % (42.0-75.0); Hemoglobin 12.4 g/dL (12.0-16.0); Mean Corpuscular HGB CONC 35.4 g/dL (32.0-36.0); Platelet Count 365 10x3/uL (130-400); RBC Distribution Width 12.8 % (11.5-14.5); Red Blood Cell (RBC) Count 4.27 mill/uL (4.20-5.40)
[2023-10-03 18:33] LABS: ALT (SGPT) 17 U/L (8-55); AST (SGOT) 14 U/L (5-34); Albumin 3.9 g/dL (3.4-4.8); Alkaline Phosphatase 102 U/L (40-110); Anion Gap 27 mmol/L (10-20); BUN (Urea Nitrogen) 18 mg/dL (9.8-20.1); Bilirubin, Total 0.3 mg/dL (0.2-1.2); Calc. Creatinine Clearance 0 mL/min (70-130); Calcium 9.3 mg/dL (7.8-10.44); Carbon Dioxide 11 mmol/L (23-31); Chloride 92 mmol/L (98-107); Estimated GFR 36; Phosphorus 2.7 mg/dL (2.3-4.7); Potassium 4.2 mmol/L (3.5-5.1); Protein, Total 7.9 g/dL (5.8-8.1); Sodium 126 mmol/L (136-145)
[2023-10-03 18:38] LABS: Glucose 578 mg/dL (80-115)
[2023-10-03 18:41] LABS: Troponin I Less than 0.010 ng/mL (< 0.028)
[2023-10-03] MEDS ORDERED: INSULIN REGULAR IN 0.9 % NACL 100 UNITS/100 ML BAG ONE (20:34)
[2023-10-03] MEDS ORDERED: Insulin Regular 300 UNITS/3 ML VIAL ONE (20:55)
[2023-10-03] MEDS ORDERED: Ondansetron ODT 4 MG TAB PO PRN (21:26)
[2023-10-03] MEDS ORDERED: Sodium Chloride 0.9% 1,000 ML IV PRN ×2 (21:26)
[2023-10-03] MEDS ORDERED: Acetaminophen 650 MG Suppository PR PRN (21:26)
[2023-10-03] MEDS ORDERED: D5 1/2 NS w/20 mEq KCL 1,000 ML IV PRN (21:26)
[2023-10-03] MEDS ORDERED: NS 0.9% w/ 20 MEQ KCL 1,000 ML IV PRN ×2 (21:26)
[2023-10-03] MEDS ORDERED: Ondansetron PF 4 MG/2 ML Vial IVP PRN (21:26)
[2023-10-03] MEDS ORDERED: Electrolyte Replacement Protocol 1 EACH IVPB PRN (21:26)
[2023-10-03] MEDS ORDERED: Acetaminophen 325 MG TAB PO PRN (21:26)
[2023-10-03] MEDS ORDERED: Dextrose 50% Abboject 50 ML SYRINGE SLOW IVP PRN (21:26)
[2023-10-03] MEDS ORDERED: Dextrose 5 %-0.45 % NaCl 1,000 ML IV PRN (21:26)
[2023-10-03] MEDS ORDERED: HUMULIN R 100 UNITS in Sodium Chloride 0.9% 100 ML IVPB SCH (21:30)
[2023-10-03 22:23] VITALS: BMI 28.1
[2023-10-03 22:40] LABS: Anion Gap 22 mmol/L (10-20); BUN (Urea Nitrogen) 16 mg/dL (9.8-20.1); Calc. Creatinine Clearance 64 mL/min (70-130); Calcium 9.3 mg/dL (7.8-10.44); Carbon Dioxide 13 mmol/L (23-31); Chloride 100 mmol/L (98-107); Estimated GFR 50; Glucose 304 mg/dL (80-115); Potassium 3.9 mmol/L (3.5-5.1); Sodium 131 mmol/L (136-145)
[2023-10-04] MEDS ORDERED: Gabapentin 300 MG CAP PO SCH ×2 (00:30→09:00)
[2023-10-04 01:53] LABS: Anion Gap 20 mmol/L (10-20); BUN (Urea Nitrogen) 14 mg/dL (9.8-20.1); Calc. Creatinine Clearance 73 mL/min (70-130); Calcium 8.5 mg/dL (7.8-10.44); Carbon Dioxide 17 mmol/L (23-31); Chloride 103 mmol/L (98-107); Estimated GFR 58; Glucose 178 mg/dL (80-115); Potassium 4.2 mmol/L (3.5-5.1); Sodium 136 mmol/L (136-145)
[2023-10-04 04:09] LABS: #Basophils 0.1 thou/uL (0.0-0.2); #Eosinphils 0.3 thou/uL (0.0-0.7); #Monocytes 0.7 thou/uL (0.11-0.59); %Basophils 0.5 % (0.0-1.0); %Eosinophils 2.9 % (0.0-10.0); %Lymphocytes 56.3 % (21.0-51.0); %Monocytes 7.3 % (0.0-10.0); %Neutrophils 32.7 % (42.0-75.0); Hematocrit 33.3 % (36.0-47.0); Hemoglobin 11.5 g/dL (12.0-16.0); Mean Corpuscular HGB CONC 34.5 g/dL (32.0-36.0); Mean Corpuscular Hemoglobin 28.8 pg (27.0-31.0); Mean Corpuscular Volume 83.3 fl (78.0-98.0); Mean Platelet Volume 8.7 fL (7.4-10.4); Platelet Count 330 10x3/uL (130-400); RBC Distribution Width 12.9 % (11.5-14.5); White Blood Cell (WBC) Count 9.2 10x3/uL (4.8-10.8)
[2023-10-04 04:34] LABS: Anion Gap 14 mmol/L (10-20); BUN (Urea Nitrogen) 13 mg/dL (9.8-20.1); Calc. Creatinine Clearance 75 mL/min (70-130); Calcium 8.6 mg/dL (7.8-10.44); Carbon Dioxide 20 mmol/L (23-31); Chloride 105 mmol/L (98-107); Estimated GFR 61; Glucose 154 mg/dL (80-115); Potassium 3.3 mmol/L (3.5-5.1); Sodium 136 mmol/L (136-145)
[2023-10-04 04:45] LABS: Anion Gap 13 mmol/L (10-20); BUN (Urea Nitrogen) 13 mg/dL (9.8-20.1); Calc. Creatinine Clearance 80 mL/min (70-130); Calcium 8.6 mg/dL (7.8-10.44); Carbon Dioxide 20 mmol/L (23-31); Chloride 105 mmol/L (98-107); Estimated GFR 66; Glucose 152 mg/dL (80-115); Potassium 3.3 mmol/L (3.5-5.1); Sodium 135 mmol/L (136-145)
[2023-10-04] MEDS ORDERED: Magnesium 2 GM/50 ML(in water) 2 GM in Premix 1 BAG IVPB SCH (08:00)
[2023-10-04] MEDS ORDERED: Potassium Chloride 20 MEQ TAB PO SCH (08:00)
[2023-10-04] MEDS: FLUoxetine HCl 20 MG CAP PO SCH (08:11)
[2023-10-04] MEDS ORDERED: Insulin Glargine 30 UNITS/0.3 ML VIAL SC SCH (10:15)
[2023-10-04 10:40] LABS: Hemoglobin A1c Greater than 14.0 % (4.0-6.0)
[2023-10-04 11:07] LABS: Phosphorus 1.9 mg/dL (2.3-4.7)
[2023-10-04] MEDS: PHOS-NAK 1 PKT PACK PO SCH ×2 (12:37→17:55)
[2023-10-04 13:18] LABS: Bacteria/HPF None Seen HPF (None Seen); Bilirubin Negative (Negative); Blood, Urine Negative (Negative); Clarity Clear (Clear); Glucose, Urine (Dipstick) 30 mg/dL (Negative); Ketone, Urine Negative (Negative); Leukocyte Negative Leu/uL (Negative); Nitrite Negative (Negative); Protein, Urine (Dipstick) Negative (Neg-Trace); RBC/HPF 0-3 HPF (0-3); Specific Gravity, Urine 1.006 (1.002-1.036); Squamous Epithelial 0-3 HPF (0-3); Urobilinogen Normal mg/dL (Less than 2); WBC/HPF 0-3 HPF (0-3); pH, Urine 5.5 (5.0-9.0)
[2023-10-04] MEDS: Loperamide HCl 2 MG CAP PO PRN ×2 (17:55→21:35)
[2023-10-04] MEDS: Insulin Regular 300 UNITS/3 ML VIAL SC PRN ×2 (18:14→21:35)
[2023-10-04] MEDS ORDERED: Glucagon 1 MG/ML KIT IM PRN (18:15)
[2023-10-04] MEDS ORDERED: Dextrose 5% in Water 1,000 ML IV PRN (18:15)
[2023-10-04] MEDS ORDERED: Dextrose 50% Abboject 50 ML SYRINGE IVP PRN (18:15)
[2023-10-04] MEDS ORDERED: Non-Formulary Item 1 EACH (Insulin Aspart [Novolog] 100 UNIT/ML Vial) SC SCH (21:00)
[2023-10-04] MEDS: Atorvastatin Calcium 40 MG TAB PO SCH (21:31)
[2023-10-04] MEDS: Mirtazapine 15 MG Soltab PO SCH (21:31)
[2023-10-04] MEDS: Insulin Glargine 30 UNITS/0.3 ML VIAL SC SCH (21:31)
[2023-10-04] MEDS: Venlafaxine HCl XR 75 MG CAP PO SCH (21:31)
[2023-10-04] MEDS: Gabapentin 300 MG CAP PO SCH (21:32)
[2023-10-05 06:49] LABS: Anion Gap 12 mmol/L (10-20); BUN (Urea Nitrogen) 8 mg/dL (9.8-20.1); Calc. Creatinine Clearance 76 mL/min (70-130); Calcium 9.1 mg/dL (7.8-10.44); Carbon Dioxide 22 mmol/L (23-31); Chloride 105 mmol/L (98-107); Estimated GFR 62; Glucose 164 mg/dL (80-115); Potassium 4.3 mmol/L (3.5-5.1); Sodium 135 mmol/L (136-145)
[2023-10-05] MEDS ORDERED: Insulin Glargine 30 UNITS/0.3 ML VIAL SC SCH (09:00)
[2023-10-05] MEDS: Venlafaxine HCl XR 75 MG CAP PO SCH ×3 (10:22→21:20)
[2023-10-05] MEDS: HumaLOG 300 UNITS/3 ML VIAL SC SCH ×3 (10:23→15:09)
[2023-10-05] MEDS: Gabapentin 300 MG CAP PO SCH ×2 (10:23→21:20)
[2023-10-05] MEDS: FLUoxetine HCl 20 MG CAP PO SCH (10:24)
[2023-10-05] MEDS: Insulin Glargine 30 UNITS/0.3 ML VIAL SC SCH ×2 (10:24→21:21)
[2023-10-05] MEDS: Loperamide HCl 2 MG CAP PO PRN (15:09)
[2023-10-05] MEDS: Mirtazapine 15 MG Soltab PO SCH (21:20)
[2023-10-05] MEDS: Atorvastatin Calcium 40 MG TAB PO SCH (21:20)
[2023-10-06 05:36] LABS: Anion Gap 15 mmol/L (10-20); BUN (Urea Nitrogen) 13 mg/dL (9.8-20.1); Calc. Creatinine Clearance 69 mL/min (70-130); Calcium 9.2 mg/dL (7.8-10.44); Carbon Dioxide 20 mmol/L (23-31); Chloride 105 mmol/L (98-107); Estimated GFR 55; Glucose 252 mg/dL (80-115); Potassium 4.3 mmol/L (3.5-5.1); Sodium 136 mmol/L (136-145)
[2023-10-06] MEDS: HumaLOG 300 UNITS/3 ML VIAL SC SCH ×3 (06:53→17:22)
[2023-10-06] MEDS: Venlafaxine HCl XR 75 MG CAP PO SCH ×3 (09:06→20:56)
[2023-10-06] MEDS: FLUoxetine HCl 20 MG CAP PO SCH (09:06)
[2023-10-06] MEDS: Gabapentin 300 MG CAP PO SCH ×2 (09:07→19:54)
[2023-10-06] MEDS: Insulin Glargine 30 UNITS/0.3 ML VIAL SC SCH ×2 (09:08→19:54)
[2023-10-06] MEDS: Atorvastatin Calcium 40 MG TAB PO SCH (19:54)
[2023-10-06] MEDS: Mirtazapine 15 MG Soltab PO SCH (20:56)
[2023-10-07 06:26] LABS: Anion Gap 13 mmol/L (10-20); BUN (Urea Nitrogen) 19 mg/dL (9.8-20.1); Calc. Creatinine Clearance 64 mL/min (70-130); Calcium 9.1 mg/dL (7.8-10.44); Carbon Dioxide 23 mmol/L (23-31); Chloride 105 mmol/L (98-107); Estimated GFR 52; Glucose 113 mg/dL (80-115); Potassium 4.4 mmol/L (3.5-5.1); Sodium 137 mmol/L (136-145)
[2023-10-07] MEDS: Insulin Glargine 30 UNITS/0.3 ML VIAL SC SCH (09:55)
[2023-10-07] MEDS: HumaLOG 300 UNITS/3 ML VIAL SC SCH ×2 (09:55→13:20)
[2023-10-07] MEDS: Venlafaxine HCl XR 75 MG CAP PO SCH ×2 (09:56→15:12)
[2023-10-07] MEDS: Gabapentin 300 MG CAP PO SCH (09:56)
[2023-10-07] MEDS: FLUoxetine HCl 20 MG CAP PO SCH (09:56)
[2023-10-07 12:30] VITALS: BP 130/79; TEMP 98.5
[2023-10-07] MEDS ORDERED: Mirtazapine 15 MG TAB PO SCH (21:00)
== END 2023-10-07 16:04 | disposition home or self-care (01) | DRG 638 ==
LOC: ERS 17:38 → IMCU/EMU 21:16 → T4-A 10-06 18:52
PROVIDERS: ADMIT Student in an Organized Health Care Education/Training Program; ATTEND Internal Medicine
DX: E11.10 Type 2 diabetes mellitus with ketoacidosis without coma (principal); E87.1 Hypo-osmolality and hyponatremia; N17.9 Acute kidney failure, unspecified; E78.5 Hyperlipidemia, unspecified; E86.0 Dehydration; R19.7 Diarrhea, unspecified; E11.40 Type 2 diabetes mellitus with diabetic neuropathy, unspecified; N18.9 Chronic kidney disease, unspecified; E11.22 Type 2 diabetes mellitus with diabetic chronic kidney disease; F03.90 Unspecified dementia, unspecified severity, without behavioral disturbance, psychotic disturbance, mood disturbance, and anxiety; E87.6 Hypokalemia; F32.A Depression, unspecified; Z79.899 Other long term (current) drug therapy; Z88.8 Allergy status to other drugs, medicaments and biological substances; Z79.4 Long term (current) use of insulin; Z79.84 Long term (current) use of oral hypoglycemic drugs; Z87.891 Personal history of nicotine dependence
CPT/HCPCS: 36415; 36416; 71045; 74177; 80048; 80053; 81001; 82010; 83036; 83735; 84100; 84484; 85025; 87324; 87449; 93005; 96361; 96365; 96376; J1650; J1815; J3475; J3480; Q9967

== ENCOUNTER 2024-05-17 09:29 | Emergency (ER) | payer BC, OTHER ==
[2024-05-17 10:22] LABS: Bilirubin Negative (Negative); Blood, Urine 1+ (Negative); CAUTI Indications for Culture Dysuria,urgency,freq; Clarity Extra Turbid (Clear); Glucose, Urine (Dipstick) Greater than 1000 mg/dL (Negative); Ketone, Urine Negative (Negative); Leukocyte 500 Leu/uL (Negative); Nitrite Negative (Negative); Protein, Urine (Dipstick) 100 mg/dL (Neg-Trace); Specific Gravity, Urine 1.025 (1.002-1.036); Urobilinogen Normal mg/dL (Less than 2); WBC/HPF Greater than 50 HPF (0-3); pH, Urine 5.5 (5.0-9.0)
[2024-05-17 10:30] LABS: Transitional Epithelial 0-3 HPF (None Seen)
[2024-05-17 10:31] LABS: Bacteria/HPF 2+ HPF (None Seen); Trichomonas/HPF 1+ HPF (None Seen)
[2024-05-17 10:32] LABS: Urine Culture Reflex Yes Yes
[2024-05-17 12:25] LABS: Bacteria/HPF 3+ HPF (None Seen); Bilirubin Negative (Negative); Blood, Urine Trace (Negative); CAUTI Indications for Culture Dysuria,urgency,freq; Clarity Turbid (Clear); Glucose, Urine (Dipstick) Greater than 1000 mg/dL (Negative); Ketone, Urine Negative (Negative); Leukocyte 500 Leu/uL (Negative); Nitrite Negative (Negative); Protein, Urine (Dipstick) 70 mg/dL (Neg-Trace); Specific Gravity, Urine 1.026 (1.002-1.036); Urobilinogen Normal mg/dL (Less than 2); WBC/HPF Greater than 50 HPF (0-3); pH, Urine 5.5 (5.0-9.0)
[2024-05-17 12:37] LABS: Trichomonas/HPF 1+ HPF (None Seen)
[2024-05-18 11:46] LABS: GC by PCR, Vaginal Swab Not Detected (NotDetected)
== END 2024-05-17 13:54 | disposition home or self-care (01) ==
LOC: ERS 09:29
DX: A59.9 Trichomoniasis, unspecified (principal); B37.9 Candidiasis, unspecified; E11.40 Type 2 diabetes mellitus with diabetic neuropathy, unspecified; Z87.891 Personal history of nicotine dependence; Z79.899 Other long term (current) drug therapy; Z79.4 Long term (current) use of insulin
CPT/HCPCS: 81001; 87086; 87480; 87510; 87591; 87660; 99283

== ENCOUNTER 2024-11-06 13:59 | Outpatient (CLI) | payer OTHER | END 2024-11-06 14:00 | disposition home or self-care (01) | LOC: BICMAMMO 13:59 | PROVIDERS: ATTEND Nurse Practitioner Family | DX: Z12.31 Encounter for screening mammogram for malignant neoplasm of breast (principal); Z80.3 Family history of malignant neoplasm of breast; Z85.41 Personal history of malignant neoplasm of cervix uteri | CPT/HCPCS: 77063; 77067 ==

== ENCOUNTER 2024-11-07 14:23 | Emergency (ER) | payer OTHER ==
[2024-11-07 16:42] LABS: #Basophils 0.06 10x3/uL (0.0-0.2); %Basophils 0.3 % (0.0-1.0); %Eosinophils 0.1 % (0.0-10.0); %Monocytes 6.5 % (0.0-10.0); %Neutrophils 71.2 % (42.0-75.0); Hematocrit 34.1 % (36.0-47.0); Hemoglobin 10.9 g/dL (12.0-16.0); Mean Corpuscular Volume 84.4 fL (78.0-98.0); Mean Platelet Volume 8.7 fL (7.4-10.4); Platelet Count 541 10x3/uL (130-400); RBC Distribution Width 13.6 % (11.5-14.5); Red Blood Cell (RBC) Count 4.04 mill/uL (4.20-5.40)
[2024-11-07 17:10] LABS: ALT (SGPT) 7 U/L (8-55); AST (SGOT) 13 U/L (5-34); Albumin 2.7 g/dL (3.4-4.8); Alkaline Phosphatase 73 U/L (40-110); Anion Gap 14 mmol/L (10-20); BUN (Urea Nitrogen) 28 mg/dL (9.8-20.1); Bilirubin, Total 0.4 mg/dL (0.2-1.2); Calc. Creatinine Clearance 0 mL/min (70-130); Calcium 9.4 mg/dL (7.8-10.44); Carbon Dioxide 21 mmol/L (23-31); Chloride 98 mmol/L (98-107); Estimated GFR 21; Globulin 5.7 g/dL (2.4-3.5); Glucose 348 mg/dL (80-115); Potassium 4.5 mmol/L (3.5-5.1); Protein, Total 8.4 g/dL (5.8-8.1); Sodium 128 mmol/L (136-145)
[2024-11-07] MEDS ORDERED: Cefepime 2 GM VIAL ONE (18:34)
[2024-11-07] MEDS ORDERED: Morphine 4 MG/ML VIAL ONE (18:34)
[2024-11-07] MEDS ORDERED: Sodium Chloride 0.9% 100 ML ONE (18:34)
[2024-11-07] MEDS ORDERED: Vancomycin (BATCH) 1.5 GM in Premix 1 BAG IVPB SCH (20:30)
[2024-11-08] MEDS ORDERED: Morphine 4 MG/ML VIAL ONE (03:35)
== END 2024-11-08 09:04 | disposition short-term general hospital (02) ==
LOC: ERS 14:23
DX: A41.9 Sepsis, unspecified organism (principal); L03.115 Cellulitis of right lower limb; N28.9 Disorder of kidney and ureter, unspecified; E11.40 Type 2 diabetes mellitus with diabetic neuropathy, unspecified
CPT/HCPCS: 36415; 36416; 71045; 80053; 82010; 83605; 85025; 86141; 87040; 96374; 96375; 96376; J0692; J2272; J3370

== ENCOUNTER 2024-12-16 10:28 | Emergency (ER) | payer OTHER ==
[2024-12-16] MEDS ORDERED: Sodium Chloride 0.9% 100 ML ONE (11:27)
[2024-12-16] MEDS ORDERED: Cefepime 2 GM VIAL ONE (11:27)
[2024-12-16] MEDS ORDERED: Vancomycin 1 GM/200 ML (FROZEN) BAG ONE (11:27)
[2024-12-16 11:40] LABS: Hematocrit 35.9 % (36.0-47.0); Hemoglobin 11.7 g/dL (12.0-16.0); Mean Corpuscular HGB CONC 32.6 g/dL (32.0-36.0); Mean Corpuscular Hemoglobin 27.3 pg (27.0-31.0); Mean Corpuscular Volume 83.7 fL (78.0-98.0); Mean Platelet Volume 8.8 fL (7.4-10.4); Platelet Count 562 10x3/uL (130-400); RBC Distribution Width 14.8 % (11.5-14.5); Red Blood Cell (RBC) Count 4.29 mill/uL (4.20-5.40)
[2024-12-16 11:55] LABS: CRP,High Sensitivity (Inhouse) 3.79 mg/dL (< or = 0.5)
[2024-12-16 11:56] LABS: ALT (SGPT) 14 U/L (Less than 34); AST (SGOT) 24 U/L (11-34); Albumin 3.4 g/dL (3.1-4.5); Alkaline Phosphatase 73 U/L (40-110); Anion Gap 15 mmol/L (10-20); BUN (Urea Nitrogen) 33 mg/dL (9.8-20.1); Bilirubin, Total 0.3 mg/dL (0.3-1.2); Calc. Creatinine Clearance 0 mL/min (70-130); Calcium 10.1 mg/dL (7.8-10.44); Carbon Dioxide 21 mmol/L (23-31); Chloride 104 mmol/L (98-107); Estimated GFR 36; Glucose 164 mg/dL (80-115); Potassium 4.1 mmol/L (3.5-5.1); Protein, Total 8.4 g/dL (5.8-8.1); Sodium 136 mmol/L (136-145)
[2024-12-16 11:59] LABS: Eosinophils 3 % (0-10); Lymphocytes 36 % (21-51); Metamyelocyte 1 % (0-0); Monocytes 6 % (0-10); Neutrophil 54 % (42-75); Platelet Adequacy Comment Platelets Increased; Polychromasia SLIGHT = 2-3 cells HPF (0-2)
== END 2024-12-16 15:40 | disposition short-term general hospital (02) ==
LOC: ERS 10:28
DX: E11.621 Type 2 diabetes mellitus with foot ulcer (principal); L97.526 Non-pressure chronic ulcer of other part of left foot with bone involvement without evidence of necrosis; L08.9 Local infection of the skin and subcutaneous tissue, unspecified
CPT/HCPCS: 36415; 80053; 83605; 85025; 86141; 87040; 96374; 96375; J0692; J3370